=== PATIENT | female | born 1985 | race Caucasian/White ===

== ENCOUNTER 2020-02-04 08:43 | Outpatient (CLI) | payer SELFPAY ==
[2020-02-04 08:46] VITALS: BMI 36.1
[2020-02-04] MEDS: Betamethasone/Betamethasone 30 MG/5 ML Vial 12 MG IM (09:02)
--- NOTE | 2020-02-04 10:16 | NURSING ---
Addendum entered by Katrina King 02/04/20 10:20: No further pt complaints at this time. Original Note: Late entry: Pt ambulated onto unit at 0843. Pt weighed and taken to room 13. RN placed order in computer and completed relevant charting. Pt up to bathroom x1. Pt educated by this RN on medication administration and reason for administration. Pt given 12mg celestone IM in right buttock per this RN at 0902 per physician order. Pt walked off unit at 0910 by this RN and taken to get covid testing by appointment per pt OB attending. RN reminded pt to return back to unit at 0830 tomorrow 02/04 for repeat celestone dose.
--- NOTE | 2020-02-07 09:07 | OB.TRI.NOTE ---
History of Present Illness Date of Service: 02/04/20 Was patient seen by the physician?: No Reason For Visit: INJECTION Date of Service: 02/04/20 Final PATRICE: 02/27/20 Final PATRICE Source: US <20 weeks Gestational age: 36 Weeks and 5 Days History of Present Illness: Patient due for repeat in approximately 1 week with uterine window present. Presents for Celestone injection in preparation. Allergies No Known Allergies Allergy (Verified 02/04/20 08:47) Impression/Plan 36-week intrauterine for repeat at 37+ weeks gestation. Celestone 12 mg IV M given today. Return for second injection tomorrow.
== END 2020-02-04 09:10 | disposition home or self-care (01) ==
LOC: WPOUT 08:44 → WP 08:45
PROVIDERS: Referring Provider Obstetrics & Gynecology; Visit Provider Obstetrics & Gynecology
DX: O34.219 Maternal care for unspecified type scar from previous cesarean delivery (principal); Z3A.36 36 weeks gestation of pregnancy
CPT/HCPCS: 96372; 99218; G0378; J0702

== ENCOUNTER → 2020-02-04 | Outpatient (CLI) | payer SELFPAY ==
[2020-02-04 08:46] VITALS: BMI 36.1
== END | disposition home or self-care (01) ==
LOC: LABSPEC 10:31
PROVIDERS: Referring Provider Obstetrics & Gynecology; Visit Provider Obstetrics & Gynecology
DX: Z11.59 Encounter for screening for other viral diseases (principal)
CPT/HCPCS: 87635; C9803; U0003

== ENCOUNTER 2020-02-05 08:45 | Outpatient (CLI) | payer SELFPAY ==
[2020-02-04 08:46] VITALS: BMI 36.1
[2020-02-05 08:50] VITALS: BMI 36.0
--- NOTE | 2020-02-05 08:57 | NURSING ---
pt here for a celestone 12mg im injection.
[2020-02-05] MEDS: Betamethasone/Betamethasone 30 MG/5 ML Vial 12 MG IM (09:15)
--- NOTE | 2020-02-07 09:13 | OB.TRI.NOTE ---
History of Present Illness Date of Service: 02/05/20 Was patient seen by the physician?: No Reason For Visit: INJECTION Date of Service: 02/05/20 Final PATRICE: 02/27/20 Final PATRICE Source: US <20 weeks Gestational age: 36 Weeks and 6 Days History of Present Illness: 36+ week intrauterine presents for second Celestone injection as repeat section is planned at 37+ week for thin window noted on ultrasound recently. Allergies No Known Allergies Allergy (Verified 02/04/20 08:47) Impression/Plan 36+ week intrauterine for repeat next week due to thinned uterine wall. Celestone 12 mg IM given.
== END 2020-02-05 09:17 | disposition home or self-care (01) ==
PROVIDERS: Visit Provider Obstetrics & Gynecology
DX: O34.593 Maternal care for other abnormalities of gravid uterus, third trimester (principal); O34.219 Maternal care for unspecified type scar from previous cesarean delivery; Z3A.36 36 weeks gestation of pregnancy
CPT/HCPCS: 96372; 99218; G0378; J0702

== ENCOUNTER 2020-02-11 04:50 | Inpatient (IN) | payer SELFPAY ==
--- NOTE | 2020-02-10 20:33 | PCM.HP.BLA ---
History and Physical Date of Admission: 02/11/20 ACOG ANTEPARTUM RECORD - HISTORY AND PHYSICAL (02/10/2020) Name: JUNIOR FLORES History of This : This is a 34-year-old G3, P2 who presents for repeat at 37+5 weeks gestation. care has been uneventful except for a prior cyst repeat section where a large uterine window was present. Ultrasound last week suggested there is again a uterine window present. Given this it was decided to proceed with repeat section at 37+ weeks gestation. Patient was given 2 doses of Celestone in preparation for this 37+ week delivery. OB Physician: ZEYNEP [place]'s Physician: Yoseph..................................................................... : 1985 Age: 34 Address: [address] [place] [address] Phone: (h) [phone] ([phone] Insurance Carrier: Emergency Contact: VIKY FLORES [phone] ...................................................................... Final PATRICE: 02/27/20 By Ultrasound: 18 weeks 4 days PARITY: (G-Total Pregnancies P-Fullterm,Premature,Induced AB,Spont AB, Ectopics, Multiple,Living) PATRICE CONFIRMATION: By LMP: 09/20/12 Initial Exam: 09/12/12 By First Ultrasound Exam: 09/26/12 Final PATRICE: 02/27/20 OB PROBLEM LIST: Prior ---plan repeat Uterine window noted at 2nd . Plan u/s at 37 weeks and if window noted plan R- at 37 to 38 wks gestation. ALLERGIES: NKDA MEDICATIONS: Vitamin daily SOCIAL HISTORY: Smoking - Never Alcohol Use - None Diet - no particular diet Lifestyle - moderate stress lifestyle and Exercise - regular Employer - [employer] Job Description - Illicit Drug Use - None Sexual Activity - Spouse-Sig Other Name - Baljit Negromelba Mishra Children Name(s) - Kamala 10/04, Stoney Baljit 09/07 (JW) PRIOR DELIVERY HISTORY DEL DATE GEST LAB WT LB WT OZ TYPE ANES LABOR TX ANTEPARTUM FLOW CHART VISIT GE RTC FU F F ME U U DATE WK MD WKS HT PN HR M SS BP ED WT ME GL D EF ST __ ____ ___ __ __ ___ __ __ __ ___ __ __ __ ___ __ Jan JMW 1 37 o + 136/82 sl 196 - - Jan JMW 3 37 V + + 122/66 sl 198 - - October 15 JMW 18 + + 134/82 tr 188 - - ANTEPARTUM NOTE(S): Feb 04 2020: Pre-op forms signed,Covid screening this am Feb 03 2020: Doing Well, R/ 02/20/20 Sep 30 2019: Sono Today,Feeling Well COMPREHENSIVE ANTEPARTUM NOTE(S): Feb 03 2020: Junior presents for her Limited OB U/S REVIEW OF SYSTEMS: GENERAL - Denies fever, or chills SKIN - Denies rash, new skin lesions, or change in moles EYES - Denies blurred vision, or change in visual acuity EARS - Denies ear pain, or difficulty hearing NOSE - Denies nasal congestion, discharge, or bleeding MOUTH - Denies sore throat, or difficulty swallowing NECK - Denies pain or swelling RESPIRATORY - Denies shortness of breath, cough, wheezing CARDIOVASCULAR - Denies palpitations, chest pain, orthopnea, PND, peripheral edema, syncope or claudication GASTROINTESTINAL - Denies nausea, vomiting, diarrhea, constipation, Denies abdominal pain, melena and or bright red blood GENITOURINARY - Denies dysuria, frequency of urination, urgency, or hesitancy MUSCULOSKELETAL - Denies joint or muscle pain, or back pain NEUROLOGICAL - Denies localized numbness, weakness, or tingling PSYCHIATRIC - Denies depression, anxiety, substance abuse or suicide attempts ENDOCRINE - Denies heat or cold intolerance, weight loss or gain, increasing thirst HEMATO-IMMUNOLOGIC - Denies easy bruising, bleeding, oral ulcerations or recurrent infections GENETICS SCREENING: INFECTION HISTORY: MENSTRUAL HISTORY: *Menses Amount/Duration: normal amountMenarche (Age Onset): 13* PAST SUMMARY: PARITY: 1. Total Pregnancies............ 2 2. Full Term Pregnancies........ 2 3. Premature.................... 0 4. Abortions - Induced.......... 0 5. Abortions - Spontaneous...... 0 6. Ectopics..................... 0 7. Multiple Births.............. 0 8. Living Children.............. 2 PHYSICAL EXAMINATION General Appearence: 34 yo female in no acute distress Vital Signs: AF, VSS Heart: RRR without rubs or gallops Lungs: CTA x 2 Breasts: deferred Abdomen: gravid Pelvis: Cervix: na Presentation: cephalic Station: na Fetus: Size: AGA Movement: present Heart: present CORONAVIRUS 19, ANDREWS SENDOUT 02/04/20 NOTE Original Ordering Provider: Jeremy Montano COVID-19,ANDREWS Not Detected Not Detected This nucleic acid amplification test was developed and its performance characteristics determined by [employer]. Nucleic acid amplification tests include PCR and TMA. This test has not been FDA cleared or approved. This test has been authorized by FDA under an Emergency Use Authorization (EUA). This test is only authorized for the duration of time the declaration that circumstances exist justifying the authorization of the emergency use of in vitro diagnostic tests for detection of SARS-CoV-2 virus and/or diagnosis of COVID-19 infection under section 564(b)(1) of the Act, 21 U.S.C. 360bbb-3(b) (1), unless the authorization is terminated or revoked sooner. When diagnostic testing is negative, the possibility of a false negative result should be considered in the context of a patient's recent exposures and the presence of clinical signs and symptoms consistent with COVID-19. An individual without symptoms of COVID-19 and who is not shedding SARS-CoV-2 virus would expect to have a negative (not detected) result in this assay. MEHDI 3 [CCL] 09/30/19 NOTE Original Ordering Provider: JEREMY MONTANO RPR Non Reactive NR HEPATITIS B SURF. AG Negative NEGAT RUBELLA IGG AB, QUAL Positive NEGAT A Sample is considered positive for IgG antibodies to rubella virus. A positive result indicates previous exposure to Rubella virus or vaccination. RUBELLA IGG AB 7.64 Indexlue Index values are interpreted as follows: Negative specimens <0.90 Equivocol specimens 0.90 to 0.99 Positive specimens >0.99 The magnitude of the measured result is not indicative of the amount of antibody present. [facility] [address] [place] [address] Gonzalo Patton III, M.D. [id number] Reviewed by JEREMY CBC + DIFF 09/30/19 NOTE Original Ordering Provider: JEREMY MONTANO CBC + DIFF CBC-COMPLETE BLOOD COUNT WBC 9.7 x 10EE3/UL 4.5 - 10.8 RBC 3.67 x 10EE6/UL 4.10 - 5.30 L HEMOGLOBIN 10.9 g/dl 12.0 - 16.0 L HEMATOCRIT 31.4 % 34.0 - 46.0 L MCV 86 fl 80 - 99 MCH 30 pg 27 - 33 MCHC 35 X10 3 32 - 36 RDW/CV 14.2 % 12.0 - 15.6 PLATELET 305 x10EE3/UL 150 - 450 MPV 8.1 fl 6.6 - 10.5 AUTOMATED DIFFERENTIAL NEUT % 72.9 % 46.0 - 76.0 LYMPH % 20.6 % 20.0 - 45.0 MONOS % 5.1 % 0.0 - 10.0 EO % 0.8 % 0.0 - 7.0 BASO % 0.6 % 0.0 - 2.0 LYMPH # 2.00 x10EE3/UL 0.80 - 2.80 NEUT # 7.10 x10EE3/UL 1.50 - 7.10 MONO # 0.50 x10EE3/UL 0.20 - 1.00 EO # 0.10 x10EE3/UL 0.00 - 0.50 BASO # 0.10 x10EE3/UL 0.00 - 0.10 MANUAL DIFF N/A MORPHOLOGY N/A Reviewed by JEREMY BB TYPE 09/30/19 NOTE Original Ordering Provider: JEREMY HOROWITZ TYPE TYPE, Rh, AND SCREEN ABO A RH POS ANTIBODY SCR negative Reviewed by JEREMY Impression /Plan: 37+ week 5-day gestation intrauterine with uterine window for repeat section. Preparations in progress for delivery.
[2020-02-11] VITALS (24 sets, daily range): BP systolic 85–116; BP diastolic 39–68; PULSE 68–99; RESP 16–18; TEMP 35.9–36.6; O2SAT 96–100; BMI 35.6
[2020-02-11] MEDS: Lactated Ringers 1,000 ML 999 ML IV (05:35)
[2020-02-11 05:59] LABS: Absolute Lymphocyte Count 2.17 X10^3/uL (0.83-4.51); Absolute Neutrophil Count 6.8 X10^3/uL (2.0-7.7); Basophil# 0.02 X10^3/uL; Basophil% 0.2 % (0-1); Eosinophil# 0.08 X10^3/uL; Eosinophils% 0.8 % (0-5); Hematocrit 33.6 % (37-47); Hemoglobin 11.4 g/dL (12.0-15.0); Lymphocyte # 2.17 X10^3/ul (4.0); Lymphocyte % 22.4 % (19-41); Mean Corp Hgb Conc 33.9 g/dL (32-36); Mean Corpuscular Hgb 29.2 pg (27.0-32.0); Mean Corpuscular Volume 86.2 fL (81-99); Mean Platelet Vol. 9.2 fl (6.2-12.0); Monocyte# 0.58 X10^3/uL; NRBC Flagged by Analyzer 0 % (0-5); Neutrophil # 6.76 X10^3/uL (2.7-7.7); Neutrophil % 69.8 % (47-70); Platelet Count 234 K/mm3 (150-450); RBC Distribution Width CV 13.2 % (11.6-14.6); RBC Distribution Width SD 40.9 fl (35.1-43.9); White Blood Count 9.7 K/mm3 (4.4-11.0)
[2020-02-11] MEDS: Acetaminophen 500 MG Tablet 1000 MG PO ×3 (06:24→18:03)
[2020-02-11] MEDS: Lactated Ringers 1,000 ML 150 ML IV (06:40)
[2020-02-11] MEDS: Sodium Citrate/Citric Acid 30 ML UDC PO (07:10)
[2020-02-11] MEDS: Cefazolin 2 GM in 0.9% Normal Saline 100 ML IV (07:15)
--- NOTE | 2020-02-11 08:30 | OP.PCM_ITS ---
Delivery Classification: Scheduled Final PATRICE: 02/27/20 Final PATRICE Source: US <20 weeks Gestational age: 37 Weeks and [address] production: Christelle Roa Type of Anesthesia:: Spinal - With Duramorph Date of Procedure: 02/11/20 Pre-Operative Diagnosis: Prior Section, Suspected Uterine Dehiscence Post-Operative Diagnosis: Prior Section, Early Uterine Dehiscence Description of Procedure: Surgeon: Steven Reaves MD, FACOG Anesthesia: Darshan Pal CRNA Procedure: Repeat Low Transverse Cervical Caesarean Section Findings: Viable female infant with Apgars of 9/10 in occiput anterior presentation with clear amniotic fluid and normal three-vessel placenta. There is approximately a 4 to 5 cm uterine window in the lower uterine segment. Indication: This is a 34-year-old who presents for her third at 37+5 weeks gestation. care has been uneventful except for prior window noted in previous and recent ultrasound demonstrating an extremely thin lower uterine segment. Patient has had some pain in this area and early uterine dehiscence was suspected. Given this patient was given 2 doses of Celestone and we decided to proceed with delivery at 37+ weeks gestation. The patient has been counseled regarding the risk and indications of this procedure including the possibility of bleeding infection and injury to surrounding structures such as bowel bladder. All questions were answered. Procedure: Patient was taken to the operating room where after spinal anesthesia was placed, the patient was prepped and draped in usual sterile fashion and a Levy catheter was placed. Peter straps were placed. The abdomen was entered through the patient's prior Pfannenstiel incision and peritoneum was entered bluntly. After developing a bladder flap on the lower uterine segment a low transverse incision was made on the uterus and head was easily delivered onto the operative field the nose mouth and oropharynx were bulb suctioned. Subsequently a viable female infant was born with Apgars of 9/10. The infant was noted to cry move all extremities vigorously on the operative field. The umbilical cord was doubly clamped and ligated and handed to the nursery personnel who were present for the delivery. Placenta was delivered and noted to be 3 vessels and normal. Uterus was exteriorized and remaining placental tissue was removed. The uterus was then closed in 2 layers first with running locked 0 Vicryl suture followed by a second imbricating layer with 0 Vicryl suture. 0 Vicryl suture was then used in a horizontal mattress interrupted fashion to affect final hemostasis of the uterine incision line. Normal fallopian tubes and ovaries were visualized and the uterus was returned to the pelvis. Hemostasis was noted and rectus abdominis muscles were reapproximated in the midline with interrupted Number 0 Vicryl suture in a horizontal mattress fashion. Fascia was closed with running Number 1 PDS Strata fix suture. Subcutaneous tissue was irrigated with copious amounts of saline solution and then closed with running 3-0 Vicryl suture. Skin was closed with 4-0 monocryl suture in a running subcuticular fashion. Steri strips and a Mepilex dressing were placed across the incision. The patient tolerated the procedure well and was taken to the recovery room in satisfactory condition. Sponge, needle, and instrument counts were all reportedly correct. EBL was less than 500 cc. Ancef 2 gms IV was given prior to the procedure. Spicemen to Pathology: None Complications: None Amniotic Fluid Description: Clear Placenta Disposition: [facility] Specimen(s) sent to pathology: None Drain: Levy to straight drain Fluids Replaced: Crystalloid Cord Entanglement: None Cord Vessel Description: 3 Vessels Esitmated Blood Loss (ml): 500 cc Gender: Female (1 minute): 9 (5 minute): 10 Antibiotic Given: Ancef 2 grams IV x1 Pt instructed on risks of surgery: Bleeding, Infection, Injury to surrounding structure(s) including bowel and bladder Complications: None - Admit VTE Documentation VTE Present on Admission: Yes VTE Mechan Device Prophylaxis: SCD's VTE Pharm Prophylaxis ordered?: Yes
--- NOTE | 2020-02-11 08:37 | DCINST_ITS ---
<Steven Reaves - Last Filed: 02/11/20 08:37> Discharge Diet: No Restrictions Discharge Activity: May not drive while taking narcotic pain medications., May Shower, May Take a Tub Bath May resume sexual activity in: 4-6 weeks Lifting Restrictions: 20 pounds Additional Activity Instructions:: Nothing in the vagina for 4-6 weeks. You may return to work/school in 6 weeks. Call your doctor if your incision/area has: Continuous Slow Oozing, Sudden Increased Bleeding, Increased Pain/ Swelling, Increased Redness, Foul Smelling Discharge Call your doctor if you observe: Fever of 101 or Higher, Inability to urinate, Inability to have a bowel movement, Using more than one pad per hour Additional Instructions: If you experience any of the following, contact your healthcare provider. * Bleeding that soaks a pad every hour for 2 hours * Fever 100.4 or higher * Unrelieved incision or abdominal pain * Swelling, redness, discharge or bleeding from your incision or episiotomy site * Your incision begins to separate * Problems urinating (including inability to urinate or burning while urinating). * Visual changes * Severe headache * Flu-like symptoms * Pain or redness in one of both of your breasts * Pain, warmth, tenderness or swelling in your legs, especially the calf area * Frequent nausea and vomiting * Symptoms of depression or anxiety If you experience any of the following, call 911 or go to the nearest Emergency Room. * Chest pain * Problems breathing * Seizure activity * Partial or complete paralysis of a body part, slurred speech, weakness or drooping of the face, or a sudden inability to walk or hold your balance Allergies/Adverse Reactions: Allergies No Known Allergies Allergy (Verified 02/04/20 08:47) Medications to take at Discharge Vits [Prenatabs FA] 1 tab PO DAILY 02/04/20 Aspirin [Aspirin, Baby] 81 mg PO DAILY@0800 02/05/20 Docusate Sodium [Colace] 100 mg PO BID PRN PRN #60 cap 02/11/20 Oxycodone [Oxyir] 5 mg PO Q6H PRN PRN 7 Days #14 tab 02/11/20 Acetaminophen [Tylenol] 1,000 mg PO Q6H tablet 02/13/20 Ibuprofen [Motrin] 600 mg PO Q6 tablet 02/13/20 Oxycodone [Oxyir] 5 mg PO Q6H PRN PRN 5 Days #24 tablet 02/13/20 The following prescriptions were given: Docusate Sodium [Colace] 100 mg PO BID PRN PRN #60 cap PRN Reason: Constipation Transmission Status: Received by [facility] Oxycodone [Oxyir] 5 mg PO Q6H PRN PRN 7 Days #14 tab PRN Reason: Pain Score 6-10/10 Transmission Status: Received by [facility] Oxycodone [Oxyir] 5 mg PO Q6H PRN PRN 5 Days #24 tablet PRN Reason: Pain Score 4-10/10 Transmission Status: Pending to [facility] Follow-Up: Call to make an appointment with your doctor for an incision check in 1-2 weeks. You will also need a 6 week post- follow up appointment. Test results from this visit will be discussed in further detail at your follow- up appointment, if applicable. Please Follow Up With: Steven Reaves MD - [phone] When: Call to make an appointment for an incision check in 2 weeks. Primary Care Physician: Fran Gunderson MD [Primary Care Provider] - <Jie Gunderson - Last Filed: 02/13/20 08:00> Additional Instructions: If you experience any of the following, contact your healthcare provider. * Bleeding that soaks a pad every hour for 2 hours * Fever 100.4 or higher * Unrelieved incision or abdominal pain * Swelling, redness, discharge or bleeding from your incision or episiotomy site * Your incision begins to separate * Problems urinating (including inability to urinate or burning while urinating). * Visual changes * Severe headache * Flu-like symptoms * Pain or redness in one of both of your breasts * Pain, warmth, tenderness or swelling in your legs, especially the calf area * Frequent nausea and vomiting * Symptoms of depression or anxiety If you experience any of the following, call 911 or go to the nearest Emergency Room. * Chest pain * Problems breathing * Seizure activity * Partial or complete paralysis of a body part, slurred speech, weakness or drooping of the face, or a sudden inability to walk or hold your balance Follow-Up: Call to make an appointment with your doctor for an incision check in 1-2 weeks. You will also need a 6 week post- follow up appointment. Test results from this visit will be discussed in further detail at your follow- up appointment, if applicable.
[2020-02-11] MEDS: Oxytocin 30 units/NS 500 ml 30 UNITS/500 ML IV.SOLN 167 UNITS IV (08:45)
[2020-02-11] MEDS: Lactated Ringers 1,000 ML 100 ML IV (11:57)
[2020-02-11] MEDS: Ketorolac 30 MG/ML Syringe IV ×2 (12:55→18:57)
[2020-02-11] MEDS: Cefazolin 1 GM/50 ML BAG IV ×2 (14:36→22:58)
--- NOTE | 2020-02-11 14:42 | NURSING ---
student charting reviewed by instructor for learning and educational purposes.
[2020-02-11] MEDS: 0.9% Saline Lock 10 ML Syringe IV ×2 (18:58→22:58)
[2020-02-11] MEDS: Enoxaparin 40 MG/0.4 ML Syringe SC (20:24)
[2020-02-12] MEDS: Acetaminophen 500 MG Tablet 1000 MG PO ×4 (00:15→18:58)
[2020-02-12] MEDS: 0.9% Saline Lock 10 ML Syringe IV ×2 (00:55→06:55)
[2020-02-12] MEDS: Ketorolac 30 MG/ML Syringe IV ×2 (00:56→06:54)
[2020-02-12 04:26] VITALS: BP 91/59; PULSE 72; RESP 16; TEMP 36.3
[2020-02-12 06:08] LABS: Hematocrit 34.1 % (37-47); Hemoglobin 11.2 g/dL (12.0-15.0); Mean Corp Hgb Conc 32.8 g/dL (32-36); Mean Corpuscular Hgb 28.7 pg (27.0-32.0); Mean Corpuscular Volume 87.4 fL (81-99); Mean Platelet Vol. 9.1 fl (6.2-12.0); Platelet Count 198 K/mm3 (150-450); RBC Distribution Width CV 13.3 % (11.6-14.6); RBC Distribution Width SD 41.9 fl (35.1-43.9); White Blood Count 11.2 K/mm3 (4.4-11.0)
--- NOTE | 2020-02-12 07:06 | PCM.PN.OB ---
Subjective: Postoperative Objective: No overnight complaints. Pain well controlled. - Physical Exam Vitals/I&O's: Vital Signs Temp Pulse Resp BP Pulse Ox 97.4 F L 72 16 91/59 L 98 02/12/20 04:26 02/12/20 04:26 02/12/20 04:26 02/12/20 04:26 02/11/20 20:12 Oxygen Delivery Method Room Air Weight: 195 lb Body Mass Index (BMI) 35.6 Intake and Output for Last 24 Hours 02/10/20 02/11/20 02/12/20 23:59 23:59 23:59 Intake Total 7208.67 / 7258.67 50 / 50 Output Total 3200 / 3200 1200 / 1200 Balance 4008.67 / 4058.67 -1150 / -1150 General: Alert, Oriented x3, Cooperative, No apparent distress HEENT: Atraumatic, Normocephalic Oral: Moist Mucosa Neck: Supple Abdomen: Soft, Non Tender, Gravid - Fundus firm and at umbilicus, - - Incision clean dry and intact Psych/Mental Status: Normal Affect, Appropriate, Alert and oriented to time, place, person, mood and affect Laboratory Results 02/12/20 06:00: WBC 11.2 H, RBC 3.90 L, Hgb 11.2 L, Hct 34.1 L, MCV 87.4, MCH 28.7, MCHC 32.8, RDW Std Deviation 41.9, RDW Coeff of Chris 13.3, Plt Count 198, MPV 9.1 Current Medications Acetaminophen (Tylenol) 1,000 mg PO Q6H [facility] Last Admin: 02/12/20 06:25 Dose: 1,000 mg Documented by: Bisacodyl (Dulcolax) 10 mg RECTAL UD PRN PRN Reason: If no BM Diphenhydramine HCl (Benadryl) 25 mg PO Q6H PRN PRN PRN Reason: ITCHING Stop: 02/12/20 08:54 Enoxaparin Sodium (Lovenox) 40 mg SC DAILY@1999 [facility] Last Admin: 02/11/20 20:24 Dose: 40 mg Documented by: Hydrocortisone (Hytone) 1 applic TOPICAL TID PRN PRN; Protocol PRN Reason: Discomfort Naloxone HCl 4 mg/ Dextrose 504 mls @ 0 mls/hr IV .Q0M PRN; Protocol PRN Reason: Respiratory depression Naloxone HCl 4 mg/ Dextrose 504 mls @ 0 mls/hr IV .Q0M PRN; Protocol PRN Reason: To maintain Resp. rate >10 Ibuprofen (Motrin) 600 mg PO Q6 [facility] Last Admin: 02/12/20 05:29 Dose: Not Given Documented by: Ketorolac Tromethamine (Toradol (Bkc)) 30 mg IV Q6H [facility] Stop: 02/12/20 08:01 Last Admin: 02/12/20 06:54 Dose: 30 mg Documented by: Methylergonovine Maleate (Methergine) 0.2 mg IM X1 PRN PRN Reason: Uterine Atony Naloxone HCl (Narcan) 0.02 mg IV Q1M PRN PRN Reason: RR <10 and pt unresponsive Naloxone HCl (Narcan) 0.02 mg IV Q1M PRN PRN Reason: RR <10 and pt unresponsive Ondansetron HCl (Zofran) 4 mg IV Q4H PRN PRN PRN Reason: Nausea Oxycodone HCl (Oxyir) 5 - 10 mg PO Q4H PRN PRN PRN Reason: Pain Score 4-10/10 Prochlorperazine Edisylate (Compazine Iv) 10 mg IV Q6H PRN PRN PRN Reason: NAUSEA Senna/Docusate Sodium (Senokot-S, [place]-Colace) 0 tablet PO DAILY [facility] Last Admin: 02/11/20 11:49 Dose: Not Given Documented by: Simethicone (Mylicon) 80 mg PO PCHS PRN PRN Reason: Indigestion/stomach pain Sodium Chloride () 5 - 15 ml IV UD PRN PRN Reason: SALINE FLUSH Last Admin: 02/12/20 06:55 Dose: 10 ml Documented by: Medical Necessity - Tobacco Use Smoking Status: Never smoker Assessment/Plan Postoperative day 1 pain well controlled. Breast-feeding. Likely Home tomorrow
[2020-02-12 08:12] VITALS: BP 101/57; PULSE 79; RESP 18; TEMP 36.3; O2SAT 98
[2020-02-12] MEDS: Senna/Docusate Sodium 1 Tablet PO (11:25)
[2020-02-12] MEDS: Ibuprofen 600 MG Tablet PO ×2 (13:25→18:58)
[2020-02-12 14:43] VITALS: BP 94/50; PULSE 89; RESP 18; TEMP 37.1; O2SAT 98
[2020-02-12 19:49] VITALS: BP 101/58; PULSE 88; RESP 16; TEMP 36.8
[2020-02-12] MEDS: Enoxaparin 40 MG/0.4 ML Syringe SC (19:54)
[2020-02-13 01:11] VITALS: BP 99/62; PULSE 88; RESP 16; TEMP 37
[2020-02-13] MEDS: Acetaminophen 500 MG Tablet 1000 MG PO ×2 (01:12→06:45)
[2020-02-13] MEDS: Ibuprofen 600 MG Tablet PO ×3 (01:12→13:07)
[2020-02-13 07:54] VITALS: BP 107/72; PULSE 87; RESP 18; TEMP 36.5; O2SAT 100
--- NOTE | 2020-02-13 08:00 | PN.OBGYN_ITS ---
Subjective: POD2 Objective: Feeling well. Ready to go home. Bleeding minimal. - Physical Exam Vitals/I&O's: Vital Signs Temp Pulse Resp BP Pulse Ox 97.7 F L 87 18 107/72 100 02/13/20 07:54 02/13/20 07:54 02/13/20 07:54 02/13/20 07:54 02/13/20 07:54 Oxygen Delivery Method Room Air Weight: 88.451 kg Body Mass Index (BMI) 35.6 Intake and Output for Last 24 Hours 02/11/20 02/12/20 02/13/20 23:59 23:59 23:59 Intake Total 7208.67 / 7258.67 50 / 50 Output Total 3200 / 3200 1200 / 1200 Balance 4008.67 / 4058.67 -1150 / -1150 General: Alert, Oriented x3, No apparent distress HEENT: Atraumatic, Normocephalic Lungs: Normal air movement Abdomen: Soft - uterus 2 below umbilicus. dressing c/d Extremities: No edema Psych/Mental Status: Normal Affect, Appropriate Current Medications Acetaminophen (Tylenol) 1,000 mg PO Q6H [facility] Last Admin: 02/13/20 06:45 Dose: 1,000 mg Documented by: Bisacodyl (Dulcolax) 10 mg RECTAL UD PRN PRN Reason: If no BM Enoxaparin Sodium (Lovenox) 40 mg SC DAILY@1999 [facility] Last Admin: 02/12/20 19:54 Dose: 40 mg Documented by: Hydrocortisone (Hytone) 1 applic TOPICAL TID PRN PRN; Protocol PRN Reason: Discomfort Naloxone HCl 4 mg/ Dextrose 504 mls @ 0 mls/hr IV .Q0M PRN; Protocol PRN Reason: Respiratory depression Naloxone HCl 4 mg/ Dextrose 504 mls @ 0 mls/hr IV .Q0M PRN; Protocol PRN Reason: To maintain Resp. rate >10 Ibuprofen (Motrin) 600 mg PO Q6 [facility] Last Admin: 02/13/20 06:45 Dose: 600 mg Documented by: Methylergonovine Maleate (Methergine) 0.2 mg IM X1 PRN PRN Reason: Uterine Atony Naloxone HCl (Narcan) 0.02 mg IV Q1M PRN PRN Reason: RR <10 and pt unresponsive Naloxone HCl (Narcan) 0.02 mg IV Q1M PRN PRN Reason: RR <10 and pt unresponsive Ondansetron HCl (Zofran) 4 mg IV Q4H PRN PRN PRN Reason: Nausea Oxycodone HCl (Oxyir) 5 - 10 mg PO Q4H PRN PRN PRN Reason: Pain Score 4-10/10 Prochlorperazine Edisylate (Compazine Iv) 10 mg IV Q6H PRN PRN PRN Reason: NAUSEA Senna/Docusate Sodium (Senokot-S, [place]-Colace) 0 tablet PO DAILY [facility] Last Admin: 02/12/20 11:25 Dose: 2 tablet Documented by: Simethicone (Mylicon) 80 mg PO PCHS PRN PRN Reason: Indigestion/stomach pain Sodium Chloride () 5 - 15 ml IV UD PRN PRN Reason: SALINE FLUSH Last Admin: 02/12/20 06:55 Dose: 10 ml Documented by: Medical Necessity - Tobacco Use Smoking Status: Never smoker Assessment/Plan 34 yo POD#2 s/p repeat section. H/H stable. Home today.
[2020-02-13 08:25] VITALS: BP 107/72; PULSE 87; RESP 18; TEMP 36.5; O2SAT 99
--- NOTE | 2020-02-13 10:11 | NURSING ---
REVIEWED STUDENT'S CHARTING FOR COMPLETENESS
[2020-02-13 11:42] VITALS: BP 99/63; PULSE 70; RESP 14; TEMP 36.6; O2SAT 98
== END 2020-02-13 14:40 | disposition home or self-care (01) | DRG 787 ==
PROVIDERS: Admitting Provider Obstetrics & Gynecology; PCP Orthopaedic Surgery; Referring Provider Obstetrics & Gynecology; Visit Provider Obstetrics & Gynecology
PROC: 10D00Z1 Extraction of Products of Conception, Low, Open Approach (ICD-10-PCS; CPT 59514; principal; 2020-02-11 07:15)
DX: O34.211 Maternal care for low transverse scar from previous cesarean delivery (principal); O99.284 Endocrine, nutritional and metabolic diseases complicating childbirth; E72.12 Methylenetetrahydrofolate reductase deficiency; Z3A.37 37 weeks gestation of pregnancy; Z37.0 Single live birth; Z79.82 Long term (current) use of aspirin
CPT/HCPCS: 85025; 85027; 86850; 86900; 86901; 99218; 99251; J7120; A4216; G0378; G0463; J2405